=== PATIENT | female | born 1990 | race Caucasian/White ===

== ENCOUNTER 2020-10-25 13:26 | Emergency (ER) | payer OTHER ==
[~2020-10-25 13:26] MED LIST: COLACE 100MG C100 MG PO; MIRALAX 119 GR119 GM PO; PHENERGAN 25 MG25 M1 PO
[2020-10-26 22:11] LABS: CHLAMYDIA TRACHOMATIS, NAA Negative (Negative); NEISSERIA GONORRHOEAE, NAA Negative (Negative)
== END 2020-10-25 16:51 | disposition home or self-care (01) ==
LOC: ER1 13:26
PROVIDERS: Emergency Medicine
DX: N89.8 Other specified noninflammatory disorders of vagina (principal); F17.200 Nicotine dependence, unspecified, uncomplicated; Z88.2 Allergy status to sulfonamides; Z88.8 Allergy status to other drugs, medicaments and biological substances
CPT/HCPCS: 81001; 84703; 87210; 96372; 99283; J0696

== ENCOUNTER 2020-11-25 20:12 | Emergency (ER) | payer OTHER ==
[2020-11-25 21:41] LABS: HEMOGLOBIN 12.4 gm/dl (12.3-15.3); RED BLOOD COUNT 3.96 M/UL (4.00-5.10); WHITE BLOOD COUNT 4.4 K/UL (4.5-11.0)
[2020-11-25 22:02] LABS: BUN/CREATININE RATIO 17 (0-10)
[2020-11-26] MEDS ORDERED: PHENERGAN 12.12.5 M1 PO (00:47)
[2020-11-26] MEDS ORDERED: IBUPROFEN600 MG PO (00:47)
== END 2020-11-26 01:00 | disposition home or self-care (01) ==
LOC: ER1 20:12
PROVIDERS: Emergency Medicine
DX: I95.1 Orthostatic hypotension (principal); E86.0 Dehydration; F17.200 Nicotine dependence, unspecified, uncomplicated
CPT/HCPCS: 36415; 71045; 80053; 81001; 83690; 83735; 84703; 85025; 93005; 96372; 96374; 99284; J2550; J2765; J7030